=== PATIENT | male | born 1985 | race Caucasian/White ===

== ENCOUNTER 2020-08-08 07:52 | Outpatient (CLI) | payer OTHER | END 2020-08-08 07:53 | disposition home or self-care (01) | LOC: TBSIIMAG 07:52 | PROVIDERS: ATTEND Neurological Surgery | DX: M47.22 Other spondylosis with radiculopathy, cervical region (principal) | CPT/HCPCS: 72141 ==

== ENCOUNTER 2021-12-11 08:12 | Outpatient (CLI) | payer BC | END 2021-12-11 08:13 | disposition home or self-care (01) | LOC: SCSMRI 08:12 | PROVIDERS: ATTEND Nurse Practitioner Family | DX: R51.9 Headache, unspecified (principal); H53.30 Unspecified disorder of binocular vision; Z86.39 Personal history of other endocrine, nutritional and metabolic disease | CPT/HCPCS: 70553 ==

== ENCOUNTER 2022-06-18 11:46 | Outpatient (CLI) | payer BC ==
[2022-06-18 14:31] LABS: #Eosinphils 0.2 thou/uL (0.0-0.7); #Lymphocytes 1.4 thou/uL (1.20-3.40); #Monocytes 0.6 thou/uL (0.11-0.59); #Neutrophils 6.3 thou/uL (1.40-6.50); %Basophils 0.2 % (0.0-1.0); %Eosinophils 2.8 % (0.0-10.0); %Lymphocytes 16.7 % (21.0-51.0); %Monocytes 6.7 % (0.0-10.0); %Neutrophils 73.6 % (42.0-75.0); Hemoglobin 15.6 g/dL (14.0-18.0); Mean Corpuscular HGB CONC 33.5 g/dL (32.0-36.0); Mean Corpuscular Volume 92.5 fl (78.0-98.0); Mean Platelet Volume 8.8 fL (7.4-10.4); Platelet Count 230 10x3/uL (130-400); RBC Distribution Width 12.1 % (11.5-14.5); Red Blood Cell (RBC) Count 5.02 mill/uL (4.70-6.10); White Blood Cell (WBC) Count 8.6 10x3/uL (4.8-10.8)
[2022-06-18 15:33] LABS: ALT (SGPT) 28 U/L (8-55); AST (SGOT) 24 U/L (5-34); Albumin 4.9 g/dL (3.5-5.0); Alkaline Phosphatase 104 U/L (40-110); Anion Gap 13 mmol/L (10-20); BUN (Urea Nitrogen) 19 mg/dL (8.9-20.6); Bilirubin, Total 0.7 mg/dL (0.2-1.2); Calc. Creatinine Clearance 0 mL/min (70-130); Calcium 9.8 mg/dL (7.8-10.44); Carbon Dioxide 25 mmol/L (22-29); Chloride 104 mmol/L (98-107); Estimated GFR 101; Globulin 2.8 g/dL (2.4-3.5); Glucose 99 mg/dL (70-105); Potassium 4.6 mmol/L (3.5-5.1); Protein, Total 7.7 g/dL (6.0-8.3); Sodium 137 mmol/L (136-145)
== END 2022-06-18 11:47 | disposition home or self-care (01) ==
LOC: SCSRAD 11:46
PROVIDERS: ATTEND Nurse Practitioner Family
DX: M54.41 Lumbago with sciatica, right side (principal); M47.26 Other spondylosis with radiculopathy, lumbar region
CPT/HCPCS: 36415; 72100; 74018; 80053; 82607; 85025; 87086

== ENCOUNTER 2023-10-12 09:05 | Outpatient (CLI) | payer BC | END 2023-10-12 09:06 | disposition home or self-care (01) | LOC: NM 09:05 | PROVIDERS: ATTEND Psychiatry & Neurology Neurology | DX: R25.1 Tremor, unspecified (principal) | CPT/HCPCS: 78803; A9584 ==